=== PATIENT | male | born 1980 | race Hispanic/Latino ===

== ENCOUNTER 2022-06-01 12:34 | Emergency (ER) | payer OTHER, SELFPAY ==
[2022-06-01] MEDS ORDERED: METHYLPREDNISOLONE 125 MG INJ ONE (13:07)
[2022-06-01] MEDS ORDERED: FAMOTIDINE 20 MG/2 ML VIAL IV ONE (13:07)
[2022-06-01] MEDS ORDERED: DIPHENHYDRAMINE 50 MG/ML VIAL ONE (13:07)
[2022-06-01] MEDS ORDERED: NA CHLORIDE 0.9% 1,000 ML ONE (13:07)
--- NOTE | 2022-06-01 13:34 | EDPHYS ---
Physician Documentation [facility] Name: Abdulaziz Oropeza Age: 42 yrs Sex: Male : 1980 Arrival Date: 06/01/2022 Time: 12:35 Bed DIS5 Private MD: Dilan Guzmán V ED Physician Mckayla Garcia HPI: 06/01 12:55 This 42 yrs old Male presents to ER via Ambulatory with complaints of Allergic jh7 Reaction, Rash. 12:55 The patient presents with itching, rash. Onset: The symptoms/episode began/occurred jh7 last night. Patient states that he ate some [place] barbecue last night, which is caused him to have an allergic reaction before. Reports that he started itching last night, but developed a rash all over his body this morning. Denies any facial swelling, sore throat, or difficulty breathing.. Historical: - Allergies: 12:52 No Known Allergies; hb - Home Meds: 12:52 None [Active]; hb - PMHx: 12:52 None; hb - PSHx: 12:52 Vasectomy; hb - Immunization history:: Adult Immunizations up to date. - Social history:: Smoking status: Patient denies any tobacco usage or history of. ROS: 12:55 Constitutional: Negative for fever, chills, and weight loss, ENT: Negative for injury, jh7 pain, and discharge, Neck: Negative for injury, pain, and swelling, Cardiovascular: Negative for chest pain, palpitations, and edema, Respiratory: Negative for shortness of breath, cough, wheezing, and pleuritic chest pain, Abdomen/GI: Negative for abdominal pain, nausea, vomiting, diarrhea, and constipation, Back: Negative for injury and pain, MS/Extremity: Negative for injury and deformity, Skin: Negative for injury, rash, and discoloration, Neuro: Negative for headache, weakness, numbness, tingling, and seizure. 12:55 Skin: Positive for rash. 12:55 All other systems are negative. Exam: 12:55 Constitutional: This is a well developed, well nourished patient who is awake, alert, jh7 and in no acute distress. Head/Face: Normocephalic, atraumatic. Eyes: Pupils equal round and reactive to light, extra-ocular motions intact. Lids and lashes normal. Conjunctiva and sclera are non-icteric and not injected. Cornea within normal limits. Periorbital areas with no swelling, redness, or edema. ENT: Nares patent. No nasal discharge, no septal abnormalities noted. Tympanic membranes are normal and external auditory canals are clear. Oropharynx with no redness, swelling, or masses, exudates, or evidence of obstruction, uvula midline. Mucous membranes moist. Cardiovascular: Regular rate and rhythm with a normal S1 and S2. No gallops, murmurs, or rubs. Normal PMI, no JVD. No pulse deficits. Respiratory: Lungs have equal breath sounds bilaterally, clear to auscultation and percussion. No rales, rhonchi or wheezes noted. No increased work of breathing, no retractions or nasal flaring. Abdomen/GI: Soft, non-tender, with normal bowel sounds. No distension or tympany. No guarding or rebound. No evidence of tenderness throughout. Neuro: Awake and alert, GCS 15, oriented to person, place, time, and situation. Sensory grossly intact. Normal gait. 12:55 Skin: Erythematous, pruritic, urticarial rash present on bilateral arms and trunk. Vital Signs: 12:51 BP 131 / 77; Pulse 79; Resp 16; Temp 97.2; Pulse Ox 100% on R/A; Weight 86.18 kg; hb Height 5 ft. 7 in. (170.18 cm); Pain 0/10; 12:51 Body Mass Index 29.76 (86.18 kg, 170.18 cm) hb MDM: 12:51 Patient medically screened. [facility] 14:00 Differential diagnosis: anaphylaxis, urticaria. Data reviewed: vital signs, nurses [facility] notes. Data interpreted: Pulse oximetry: is 100 %. Counseling: I had a detailed discussion with the patient and/or guardian regarding: the historical points, exam findings, and any diagnostic results supporting the discharge/admit diagnosis, to return to the emergency department if symptoms worsen or persist or if there are any questions or concerns that arise at home. Administered Medications: 13:00 Drug: SOLU-Medrol (methylPrednisoLONE) 125 mg Route: IVP; Site: left antecubital; hb 13:00 Drug: Benadryl (diphenhydrAMINE) 25 mg Route: IVP; Site: left antecubital; hb 13:00 Drug: Pepcid (famotidine) 20 mg Route: IVP; Site: left antecubital; hb 13:00 Drug: NS 0.9% 1000 ml Route: IV; Rate: 1 bolus; Site: left antecubital; hb Disposition: 18:45 Co-signature as Attending Physician, Mckayla Garcia MD STAFF ATTESTATION STATEMENT I sd2 was immediately available on-site in the Emergency Department for consultation in the care of the patient. Mckayla Garcia MD. Disposition Summary: 06/01/22 13:33 Discharge Ordered Location: Home [facility] Problem: new [facility] Symptoms: have improved [facility] Condition: Stable [facility] Diagnosis - Allergic urticaria [facility] - Allergic contact dermatitis due to adhesives [facility] Followup: [facility] - With: Private Physician - When: 2 - 3 days - Reason: Recheck today's complaints Discharge Instructions: - Discharge Summary Sheet [facility] - Allergies, Adult [facility] - Contact Dermatitis [facility] - Hives [facility] Forms: - Medication Reconciliation Form [facility] - Thank You Letter [facility] Prescriptions: - Hydroxyzine HCl 25 mg Oral Tablet - take 1 tablet by ORAL route every 6 hours As needed; 12 tablet; Refills: 0, [facility] Product Selection Permitted - Medrol (Checo) 4 mg Oral Tablets, Dose Pack - take 1 tablet by ORAL route as directed - follow package instructions; 1 [facility] packet; Refills: 0, Product Selection Permitted Signatures: Larisa Singh, RN RN Teresa Zheng, STARCH DUMPER STARCH DUMPER Mckayla Velarde MD MD sd2
--- NOTE | 2022-06-01 13:34 | ER ---
Nurse's Notes [facility] Name: Abdulaziz Oropeza Age: 42 yrs Sex: Male : 1980 Arrival Date: 06/01/2022 Time: 12:35 Bed DIS5 Private MD: Dilan Guzmán V Diagnosis: Allergic urticaria;Allergic contact dermatitis due to adhesives Presentation: 06/01 12:51 Chief complaint: Diffuse hives since last night. Denies SOB. Coronavirus screen: At this time, the client does not indicate any symptoms associated with coronavirus-19. Ebola Screen: No symptoms or risks identified at this time. Onset: The symptoms/episode began/occurred last night. Anaphylaxis evaluation, no signs or symptoms of anaphylaxis were noted. Initial Sepsis Screen: Does the patient meet any 2 criteria? No. Patient's initial sepsis screen is negative. Does the patient have a suspected source of infection? No. Patient's initial sepsis screen is negative. Risk Assessment: Do you want to hurt yourself or someone else? Patient reports no desire to harm self or others. Onset of symptoms was May 31, 2022. 12:51 Method Of Arrival: Ambulatory 12:51 Acuity: TETE 3 ss Triage Assessment: 12:52 General: Appears in no apparent distress. Behavior is calm, cooperative. Pain: Denies hb pain. Neuro: Level of Consciousness is awake, alert, obeys commands, Oriented to person, place, time, situation. Cardiovascular: Patient's skin is warm and dry. Respiratory: Respiratory effort is even, unlabored, Respiratory pattern is regular, symmetrical. Derm: Rash noted that is macular, on trunk and limbs. Historical: - Allergies: 12:52 No Known Allergies; hb - Home Meds: 12:52 None [Active]; hb - PMHx: 12:52 None; hb - PSHx: 12:52 Vasectomy; hb - Immunization history:: Adult Immunizations up to date. - Social history:: Smoking status: Patient denies any tobacco usage or history of. Screenin:23 Abuse screen: Denies threats or abuse. Denies injuries from another. Nutritional hb screening: No deficits noted. Tuberculosis screening: No symptoms or risk factors identified. Fall Risk None identified. Assessment: 13:24 General: see triage assessment. hb Vital Signs: 12:51 BP 131 / 77; Pulse 79; Resp 16; Temp 97.2; Pulse Ox 100% on R/A; Weight 86.18 kg; hb Height 5 ft. 7 in. (170.18 cm); Pain 0/10; 12:51 Body Mass Index 29.76 (86.18 kg, 170.18 cm) hb ED Course: 12:35 Patient arrived in ED. mr 12:35 Dilan Guzmán MD is Private Physician. mr 12:36 Teresa Joshi FNP [facility] 12:36 Mckayla Garcia MD is Attending Physician. [facility] 12:52 Triage completed. hb 12:52 Arm band placed on. hb 12:59 Inserted saline lock: 20 gauge in left antecubital area, using aseptic technique. hb 13:23 Patient has correct armband on for positive identification. hb Administered Medications: 13:00 Drug: SOLU-Medrol (methylPrednisoLONE) 125 mg Route: IVP; Site: left antecubital; hb 13:00 Drug: Benadryl (diphenhydrAMINE) 25 mg Route: IVP; Site: left antecubital; hb 13:00 Drug: Pepcid (famotidine) 20 mg Route: IVP; Site: left antecubital; hb 13:00 Drug: NS 0.9% 1000 ml Route: IV; Rate: 1 bolus; Site: left antecubital; hb Outcome: 13:33 Discharge ordered by . 7 14:24 Patient left the ED. Signatures: Irene Lord mr Jennifer Mendes RN RN Larisa Singh RN RN Teresa Joshi FNP [place] [id number] Corrections: (The following items were deleted from the chart) 12:56 12:51 Acuity: TETE 4 hb ss
[2022-06-01 15:27] VITALS: BP 131/77; TEMP 97.2; O2SAT 100
== END 2022-06-01 14:24 | disposition home or self-care (01) ==
LOC: ER 12:34
DX: L50.0 Allergic urticaria (principal); L23.1 Allergic contact dermatitis due to adhesives
CPT/HCPCS: 96375; 96374; 99283; J1200; J7030; J2930; J3490

== ENCOUNTER 2022-06-01 22:40 | Emergency (ER) | payer OTHER ==
[2022-06-01 23:56] LABS: Absolute Lymphocytes (CBC) 0.3 K/uL (0.7-4.9); Hematocrit 48.3 % (39.6-49.0); Lymphocytes % 4.5 % (15.3-44.8); MCV 92.9 fL (80-100); MPV 8.9 fL (7.6-11.3)
[2022-06-02] MEDS ORDERED: METHYLPREDNISOLONE 125 MG INJ ONE (00:08)
[2022-06-02 00:36] LABS: C-Reactive Protein 2.94 mg/L (<3.00)
[2022-06-02 00:40] LABS: Potassium 1.6 mmol/L (3.5-5.1); Troponin High Sensitivity 336.8 pg/mL (<58.9)
--- NOTE | 2022-06-02 00:50 | EDPHYS ---
Physician Documentation [facility] Name: Abdulaziz Oropeza Age: 42 yrs Sex: Male : 1980 Arrival Date: 06/01/2022 Time: 22:41 Bed 6 Private MD: ED Physician Nando Vincent HPI: 06/02 02:01 This 42 yrs old Male presents to ER via Wheelchair with complaints of Chest kdr Pain, Leg Numbness. 02:01 The patient or guardian reports chest pain that is located primarily in the substernal kdr area. Onset: suddenly, at 19:00. The pain does not radiate. Associated signs and symptoms: Pertinent positives: Patient complains of diffuse weakness. According to his , she had to help him into the car because he had difficulty walking in the emergency department the patient is diffusely weak. He is able to move upper and lower extremities upper greater than lower. He is unable to bring his arms across his torso. He is unable to lift and sustain his legs off the bed. Left greater than right.. The chest pain is described as aching, dull, a heaviness, a pressure. Duration: The patient or guardian reports a single episode, that is now resolved, that lasted an unknown period of time. Severity of pain: At its worst the pain was mild in the emergency department the pain has resolved. The patient has not experienced similar symptoms in the past. The patient has not recently seen a physician. Historical: - Allergies: 06/01 22:52 No Known Allergies; hb - PSHx: 22:52 Vasectomy; hb - Immunization history:: Adult Immunizations up to date. - Social history:: Smoking status: Patient denies any tobacco usage or history of. ROS: 06/02 02:01 Constitutional: Negative for fever, chills, and weight loss, Eyes: Negative for injury, kdr pain, redness, and discharge, Neck: Negative for injury, pain, and swelling, Respiratory: Negative for shortness of breath, cough, wheezing, and pleuritic chest pain, Abdomen/GI: Negative for abdominal pain, nausea, vomiting, diarrhea, and constipation, Back: Negative for injury and pain, : Negative for injury, bleeding, discharge, and swelling, MS/Extremity: Negative for injury and deformity, Skin: Negative for injury, rash, and discoloration, Neuro: Negative for headache, weakness, numbness, tingling, and seizure activity. Psych: Negative for depression, anxiety, suicide ideation, homicidal ideation, and hallucinations, Allergy/Immunology: Negative for hives, rash, and allergies, Endocrine: Negative for neck swelling, polydipsia, polyuria, polyphagia, and marked weight changes, Hematologic/Lymphatic: Negative for swollen nodes, abnormal bleeding, and unusual bruising. Cardiovascular: Positive for chest pain. Neuro: Positive for weakness, Diffusely weak. Exam: 02:01 Constitutional: This is a well developed, well nourished patient who is awake, alert, kdr and in mild distress. Head/Face: Normocephalic, atraumatic. Eyes: Pupils equal round and reactive to light, extra-ocular motions intact. Lids and lashes normal. Conjunctiva and sclera are non-icteric and not injected. Cornea within normal limits. Periorbital areas with no swelling, redness, or edema. ENT: Nares patent. No nasal discharge, no septal abnormalities noted. Tympanic membranes are normal and external auditory canals are clear. Oropharynx with no redness, swelling, or masses, exudates, or evidence of obstruction, uvula midline. Mucous membranes moist. Neck: Trachea midline, no thyromegaly or masses palpated, and no cervical lymphadenopathy. Supple, full range of motion without nuchal rigidity, or vertebral point tenderness. No Meningismus. Chest/axilla: Normal chest wall appearance and motion. Nontender with no deformity. No lesions are appreciated. Cardiovascular: Regular rate and rhythm with a normal S1 and S2. No gallops, murmurs, or rubs. Normal PMI, no JVD. No pulse deficits. Respiratory: Lungs have equal breath sounds bilaterally, clear to auscultation and percussion. No rales, rhonchi or wheezes noted. No increased work of breathing, no retractions or nasal flaring. Abdomen/GI: Soft, non-tender, with normal bowel sounds. No distension or tympany. No guarding or rebound. No evidence of tenderness throughout. Back: No spinal tenderness. No costovertebral tenderness. Full range of motion. Skin: Warm, dry with normal turgor. Normal color with no rashes, no lesions, and no evidence of cellulitis. MS/ Extremity: Pulses equal, no cyanosis. Neurovascular intact. Full, normal range of motion. Psych: Awake, alert, with orientation to person, place and time. Behavior, mood, and affect are within normal limits. 02:01 Neuro: Orientation: is normal, Motor: moves all fours, Patient is globally weak lower extremities more weak than upper extremities. 07:28 ECG was reviewed by the Attending Physician. kdr Vital Signs: 06/01 22:51 BP 132 / 76; Pulse 96; Resp 16; Temp 97.8; Pulse Ox 100% on R/A; Pain 6/10; hb 06/02 00:46 BP 135 / 90; Pulse 64; Resp 20; Pulse Ox 97% on R/A; jb4 00:53 Weight 85.3 kg (M); jb4 02:00 BP 131 / 95; Pulse 84; Resp 24; Pulse Ox 98% on R/A; jb4 03:15 BP 123 / 85; Pulse 71; Resp 14; Pulse Ox 97% on R/A; jb4 04:15 BP 138 / 85; Pulse 79; Resp 16; Pulse Ox 96% on R/A; jb4 MDM: 00:49 Patient medically screened. kdr 02:07 Data reviewed: vital signs, nurses notes, lab test result(s), radiologic studies. kdr Counseling: I had a detailed discussion with the patient and/or guardian regarding: the historical points, exam findings, and any diagnostic results supporting the discharge/admit diagnosis, lab results, radiology results, the need to transfer to another facility. 04:31 ED course: Patient continues to have no chest pain at this time. He has not had chest kdr pain since admission to the ED on this visit. His vital signs remained stable. He tolerated the interventions well.. 06/01 23:13 Order name: Basic Metabolic Panel; Complete Time: 00:46 kdr 06/01 23:13 Order name: CBC with Diff; Complete Time: 00:46 kdr 06/01 23:13 Order name: Troponin HS; Complete Time: 00:46 kdr 06/01 23:13 Order name: ESR; Complete Time: 00:46 kdr 06/01 23:13 Order name: CRP; Complete Time: 00:46 kdr 06/02 00:55 Order name: SARS RAPID; Complete Time: 01:59 ds4 06/01 23:13 Order name: XRAY Chest (1 view) kdr 06/02 01:00 Order name: Ptt, Activated; Complete Time: 01:59 [facility] 06/02 02:16 Order name: Magnesium; Complete Time: 03:11 kdr 06/01 23:13 Order name: EKG; Complete Time: 23:15 [facility] 06/01 23:13 Order name: Cardiac monitoring; Complete Time: 00:00 kdr 06/01 23:13 Order name: EKG - Nurse/Tech; Complete Time: 00:00 kdr 06/01 23:13 Order name: IV Saline Lock; Complete Time: 23:46 kdr 06/01 23:13 Order name: Labs collected and sent; Complete Time: 23:46 kdr 06/01 23:13 Order name: O2 Per Protocol; Complete Time: 23:46 kdr 06/01 23:13 Order name: O2 Sat Monitoring; Complete Time: :46 kdr EC:28 Rate is 73 beats/min. Rhythm is regular, Sinus Rhythm with Unifocal PVCs. QRS [place] is kdr Normal. MA interval is normal. Clinical impression: Cardiac ischemia. Administered Medications: 00:05 Drug: SOLU-Medrol (methylPrednisoLONE) 125 mg Route: IVP; Site: right antecubital; jb4 01:49 Follow up: Response: No adverse reaction 4 01:05 Drug: Potassium Effervescent Tablet 50 mEq Route: PO; 4 01:49 Follow up: Response: No adverse reaction 4 01:05 Drug: Aspirin Chewable Tablet 324 mg Route: PO; jb4 01:48 Follow up: Response: No adverse reaction jb4 01:27 Drug: Potassium Chloride 20 mEq Route: IV; Rate: calculated rate; Site: right [facility] antecubital; 02:57 Follow up: Response: No adverse reaction; IV Status: Completed infusion 4 01:28 Drug: Heparin (OR-Bolus No thrombolytic) - HEParin 60 units/kg {Co-Signature: lp1 jb4 (Jessica Benitez RN).} Route: IVP; Site: right hand; 01:48 Follow up: Response: No adverse reaction 4 01:28 Drug: Heparin (OR Drip) 12 units/kg/hr - (HEParin 73760 units, D5W 500 ml) jb4 {Co-Signature: lp1 (Jessica Benitez RN).} Route: IV; Rate: calculated rate; Site: right hand; 01:48 Follow up: Response: No adverse reaction; IV Status: Infusion continued upon transfer jb4 02:00 Drug: PlaVIX (clopidogrel) 75 mg Route: PO; jb4 03:22 Follow up: Response: No adverse reaction jb4 03:22 Drug: Magnesium Sulfate 2 grams Route: IVPB; Infused Over: 2 hrs; Site: right jb4 antecubital; 04:43 Follow up: Response: No adverse reaction; IV Status: Infusion continued upon transfer jb4 Disposition Summary: 06/02/22 00:49 Transfer Ordered Transfer Location: [facility] kdr Reason: Higher level of care kdr Condition: Fair kdr Problem: new kdr Symptoms: have improved kdr Accepting Physician: SONA Benitez: Britt/Cardiology, (06/02/22 04:44) jb4 Diagnosis - Subsequent non-ST elevation (NSTEMI) myocardial infarction kdr - Hypokalemia kdr Forms: - Medication Reconciliation Form kdr - SBAR form kdr Signatures: Dispatcher [employer] EDNando Felipe MD MD kdr Larisa Singh RN RN David Higginbotham RN RN jb4 Ivett Ortega PA PA sb3 Jessica Benitez RN lp1 Corrections: (The following items were deleted from the chart) 02:01 00:49 dd kdr kdr 04:44 02:01 SONA Benitez: Britt/Cardiology, kdr jb4
--- NOTE | 2022-06-02 00:50 | ER ---
Nurse's Notes [facility] Name: Abdulaziz Oropeza Age: 42 yrs Sex: Male : 1980 Arrival Date: 06/01/2022 Time: 22:41 Bed 6 Private MD: Diagnosis: Subsequent non-ST elevation (NSTEMI) myocardial infarction;Hypokalemia Presentation: 06/01 22:51 Chief complaint: Sudden arm and leg weakness that started at approx 7pm. Coronavirus hb screen: At this time, the client does not indicate any symptoms associated with coronavirus-19. Ebola Screen: No symptoms or risks identified at this time. Initial Sepsis Screen: Does the patient meet any 2 criteria? No. Patient's initial sepsis screen is negative. Does the patient have a suspected source of infection? No. Patient's initial sepsis screen is negative. Onset of symptoms was June 01, 2022. 22:51 Method Of Arrival: Wheelchair hb 22:51 Acuity: TETE 3 hb Historical: - Allergies: 22:52 No Known Allergies; hb - PSHx: 22:52 Vasectomy; hb - Immunization history:: Adult Immunizations up to date. - Social history:: Smoking status: Patient denies any tobacco usage or history of. Screenin:45 Abuse screen: Denies threats or abuse. Nutritional screening: No deficits noted. jb4 Tuberculosis screening: No symptoms or risk factors identified. Fall Risk None identified. Assessment: 23:45 General: Appears in no apparent distress. uncomfortable, Behavior is calm, cooperative, jb4 appropriate for age. Pain: Complains of pain in chest Pain does not radiate. Pain currently is 6 out of 10 on a pain scale. Quality of pain is described as pressure, Pain began gradually. 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 Weakness in bilateral hand(s) arm(s) leg(s) foot/feet Speech is normal, Facial symmetry appears normal, Pupils are PERRLA, Intact. Cardiovascular: Patient's skin is warm and dry. Respiratory: Airway is patent Respiratory effort is even, unlabored, Respiratory pattern is regular, symmetrical. Derm: Skin is intact, Skin is pink, warm \T\ dry. Musculoskeletal: Circulation, motion, and sensation intact. 06/02 00:46 Reassessment: Patient appears in no apparent distress at this time. Patient and/or jb4 family updated on plan of care and expected duration. Pain level reassessed. Patient is alert, oriented x 3, equal unlabored respirations, skin warm/dry/pink. 02:08 Reassessment: Patient appears in no apparent distress at this time. Patient and/or jb4 family updated on plan of care and expected duration. Pain level reassessed. Patient is alert, oriented x 3, equal unlabored respirations, skin warm/dry/pink. 03:23 Reassessment: Patient appears in no apparent distress at this time. Patient and/or jb4 family updated on plan of care and expected duration. Pain level reassessed. Patient is alert, oriented x 3, equal unlabored respirations, skin warm/dry/pink. Pt continues to report difficulty moving extremities and generalized weakness. 04:39 Reassessment: Patient appears in no apparent distress at this time. No changes from jb4 previously documented assessment. Patient and/or family updated on plan of care and expected duration. Pain level reassessed. EMS transferring pt out. Vital Signs: 06/01 22:51 BP 132 / 76; Pulse 96; Resp 16; Temp 97.8; Pulse Ox 100% on R/A; Pain 6/10; hb 06/02 00:46 BP 135 / 90; Pulse 64; Resp 20; Pulse Ox 97% on R/A; jb4 00:53 Weight 85.3 kg (M); jb4 02:00 BP 131 / 95; Pulse 84; Resp 24; Pulse Ox 98% on R/A; jb4 03:15 BP 123 / 85; Pulse 71; Resp 14; Pulse Ox 97% on R/A; jb4 04:15 BP 138 / 85; Pulse 79; Resp 16; Pulse Ox 96% on R/A; jb4 ED Course: 06/01 22:41 Patient arrived in ED. ja2 22:52 Triage completed. hb 22:52 Arm band placed on. hb 23:03 Nando Vincent MD is Attending Physician. kdr 23:45 David Hernandez, RUDDY is Primary Nurse. jb4 23:45 Patient has correct armband on for positive identification. Bed in low position. Call jb4 light in reach. Side rails up X 1. Client placed on continuous cardiac and pulse oximetry monitoring. NIBP monitoring applied. property assessment monitor on. 23:45 Patient maintains SpO2 saturation greater than 95% on room air. jb4 23:45 Initial lab(s) drawn, by me, sent to lab. Inserted saline lock: 18 gauge in right jb4 antecubital area, using aseptic technique. Blood collected. 06/02 00:20 XRAY Chest (1 view) In Process Unspecified. EDMS 01:05 Inserted saline lock: 18 gauge in right hand, using aseptic technique. Blood collected. jb4 04:43 No provider procedures requiring assistance completed. Patient transferred, IV remains jb4 in place. Administered Medications: 00:05 Drug: SOLU-Medrol (methylPrednisoLONE) 125 mg Route: IVP; Site: right antecubital; jb4 01:49 Follow up: Response: No adverse reaction jb4 01:05 Drug: Potassium Effervescent Tablet 50 mEq Route: PO; jb4 01:49 Follow up: Response: No adverse reaction jb4 01:05 Drug: Aspirin Chewable Tablet 324 mg Route: PO; jb4 01:48 Follow up: Response: No adverse reaction jb4 01:27 Drug: Potassium Chloride 20 mEq Route: IV; Rate: calculated rate; Site: right jb4 antecubital; 02:57 Follow up: Response: No adverse reaction; IV Status: Completed infusion jb4 01:28 Drug: Heparin (DC-Bolus No thrombolytic) - HEParin 60 units/kg {Co-Signature: lp1 jb4 (Jessica Benitez RN).} Route: IVP; Site: right hand; 01:48 Follow up: Response: No adverse reaction 4 01:28 Drug: Heparin (DC Drip) 12 units/kg/hr - (HEParin 92865 units, D5W 500 ml) 4 {Co-Signature: lp1 (Jessica Benitez RN).} Route: IV; Rate: calculated rate; Site: right hand; 01:48 Follow up: Response: No adverse reaction; IV Status: Infusion continued upon transfer jb4 02:00 Drug: PlaVIX (clopidogrel) 75 mg Route: PO; jb4 03:22 Follow up: Response: No adverse reaction jb4 03:22 Drug: Magnesium Sulfate 2 grams Route: IVPB; Infused Over: 2 hrs; Site: right jb4 antecubital; 04:43 Follow up: Response: No adverse reaction; IV Status: Infusion continued upon transfer jb4 Medication: 04:15 VIS not applicable for this client. jb4 Outcome: 00:49 ER care complete, transfer ordered by . kdr 04:43 Transferred by ground EMS EMS. to [facility] [facility] [place] jb4 completed. X-rays sent w/ patient. 04:43 Condition: stable 04:43 Discharge instructions given to patient, family, Instructed on the need for transfer, Demonstrated understanding of instructions. 04:44 Patient left the ED. jb4 Signatures: Dispatcher [employer] EDMS Nando Vincent MD MD kdr Larisa Singh, RN RN David Hernandez RN RN jb4 Kimberly Raymond RN lp1 Corrections: (The following items were deleted from the chart) 03:24 03:23 Reassessment: Patient appears in no apparent distress at this time. Patient jb4 and/or family updated on plan of care and expected duration. Pain level reassessed. Patient is alert, oriented x 3, equal unlabored respirations, skin warm/dry/pink. jb4
[2022-06-02] MEDS ORDERED: POTASSIUM 25 MEQ EFFERV TAB ONE (01:18)
[2022-06-02] MEDS ORDERED: NA CHLORIDE 0.9% 250 ML ONE (01:18)
[2022-06-02] MEDS ORDERED: KCL 20 MEQ/100 mL IVPB 100 ML IV ONE (01:18)
[2022-06-02] MEDS ORDERED: ASPIRIN 81 MG CHEWABLE TABLET ONE (01:18)
[2022-06-02] MEDS ORDERED: HEPARIN/D5W 25,000 UNIT/500 ML BAG IV ONE (01:18)
[2022-06-02] MEDS ORDERED: HEPARIN 5000 UNIT/ML 1 ML VIAL ONE (01:18)
[2022-06-02 01:37] LABS: SARS-CoV-2 Antigen Rapid Res Negative (Negative)
[2022-06-02] MEDS ORDERED: CLOPIDOGREL 75 MG TABLET ONE (02:07)
[2022-06-02] MEDS ORDERED: Magnesium Sulfate 2gm IVPB 2 G/50 ML BAG IV ONE (03:25)
[2022-06-02 05:04] VITALS: TEMP 97.8
[2022-06-02 05:34] VITALS: BP 138/85; O2SAT 96
--- NOTE | 2022-06-03 12:23 | EKG ---
Test Date: 2022-06-01 Test Time: 23:57:25 Travel Journalist: COMPA MEASUREMENT RESULTS: Intervals: Rate: 73 [place]: 154 QRSD: 118 QT: 550 QTc: 605 [place]: P: 65 [place]: 154 QRS: 71 T: -3 INTERPRETIVE STATEMENTS: Sinus rhythm with marked sinus arrhythmia with occasional premature ventricular complexes Cannot rule out Inferior infarct, age undetermined ST & T wave abnormality, consider anterolateral ischemia Prolonged QT Abnormal ECG No previous ECG available for comparison Electronically Signed On 06-03-22 12:21:19 CDT by Sammy Dailey
--- NOTE | 2022-06-03 12:30 | RAD REPORT ---
EXAM DESCRIPTION: RAD - Chest Single View - 06/02/2022 12:19 am CLINICAL HISTORY: The patient is 42 years old and is Male; CHEST PAIN TECHNIQUE: Frontal view of the chest. COMPARISON: No relevant prior studies available. FINDINGS: Lungs: Unremarkable. No consolidation. Pleural space: Unremarkable. No pneumothorax. Heart: Unremarkable. Mediastinum: Unremarkable. Bones/joints: Unremarkable. IMPRESSION: No acute findings in the chest. Electronically signed by: Andrew Quiles MD 06/02/2022 1:05 AM CDT Due to temporary technical issues with the PACS/Fluency reporting system, reports are being signed by the in house radiologists without review as a courtesy to insure prompt reporting. The interpreting radiologist is fully responsible for the content of the report.
== END 2022-06-02 04:44 | disposition short-term general hospital (02) ==
LOC: ER 22:40
DX: I22.2 Subsequent non-ST elevation (NSTEMI) myocardial infarction (principal); I21.9 Acute myocardial infarction, unspecified; E87.6 Hypokalemia; Z20.822 Contact with and (suspected) exposure to COVID-19
CPT/HCPCS: 93005; 85025; 80048; 36415; 83735; 85730; 85652; 84484; 86140; 71045; 99285; 87811; J1644 ×2; J3480; J3475; J7050; J2930